=== PATIENT | male | born 1980 | race Asian ===

== ENCOUNTER 2024-09-17 15:24 | Inpatient (IN) | payer OTHER ==
[~2024-09-17] VITALS: Ht 177.8 cm; Wt 90.9 kg
[2024-09-17 17:59] LABS: BASOPHILS % (AUTO) 0.6 % (0.0-2.0); HEMATOCRIT 45.4 % (41-53); LYMPHOCYTES % (AUTO) 26.9 % (22.0-44.0); MEAN CORPUSCULAR HEMOGLOBIN 28.7 pg (26.0-34.0); MEAN CORPUSCULAR VOLUME 87 fL (80-100); MONOCYTES # (AUTO) 0.7 K/uL (0.1-1.0); MONOCYTES % (AUTO) 6.3 % (2.0-9.0); NEUTROPHILS # (AUTO) 7.3 K/uL (1.8-7.7); NEUTROPHILS % (AUTO) 65.2 % (40.0-70.0); PLATELET COUNT (AUTO) 346 K/uL (150-450); RED BLOOD CELL COUNT(AUTO) 5.22 MIL/uL (4.50-5.90); RED CELL DISTRIBUTION WIDTH 13.2 % (11.5-14.5); WHITE BLOOD COUNT (AUTO) 11.2 K/uL (4.5-11.0)
[2024-09-17] MEDS ORDERED: CHOL500043 PO (18:01)
[2024-09-17] MEDS ORDERED: OMEG-86 PO (18:01)
[2024-09-17 18:03] LABS: ANION GAP 10 mmol/L (8-16); CALCIUM, TOTAL 9.5 mg/dL (8.8-10.5); CARBON DIOXIDE 27 mmol/L (22-29); CHLORIDE 101 mmol/L (98-107); CREATININE 1.18 mg/dL (0.60-1.30); GLOMERULAR FILTR. RATE CALC > 60 mL/min (>60); GLUCOSE,RANDOM 95 mg/dL (70-110); LIPASE 24 U/L (16-77); POTASSIUM 4.2 mmol/L (3.5-5.1); SODIUM SERUM 138 mmol/L (136-145); UREA NITROGEN, BLOOD 24 mg/dL (7-18)
[2024-09-17 18:20] LABS: ALBUMIN 3.9 g/dL (3.4-5.0); BILIRUBIN,DIRECT 0.1 mg/dL (0.00-0.20); BILIRUBIN,TOTAL 0.5 mg/dL (0.1-1.0); TOTAL PROTEIN, SERUM 8.2 g/dL (6.4-8.2)
[2024-09-17 18:46] LABS: TROPONIN I-HIGH SENSITIVITY 4 ng/L (<76)
[2024-09-17 19:52] LABS: APPEARANCE,URINE TURBID (CLEAR); BILIRUBIN,URINE NEGATIVE (NEGATIVE); COLOR,URINE YELLOW (YELLOW); GLUCOSE, URINE (UA) NEGATIVE (NEGATIVE); LEUKOCYTE ESTERASE ,URINE NEGATIVE (NEGATIVE); NITRATE,URINE NEGATIVE (NEGATIVE); OCCULT BLOOD,URINE TRACE (NEGATIVE); PH,URINE 5.5 (5.0-8.0); PROTEIN,URINE 30-70 mg/dL (NEGATIVE); SPECIFIC GRAVITIY, URINE 1.036 (1.003-1.030); UROBILINOGEN,URINE <=1.0 mg/dL (<=1.0)
[2024-09-17 20:04] LABS: RBC,URINE 0-2 /HPF (0-2)
[2024-09-17 20:06] LABS: BACTERIA,URINE Moderate /HPF (None Seen); WBC,URINE 0-2 /HPF (0-5)
[2024-09-17] MEDS: KETOROLAC TROMETHAMINE 30 MG/ML VIAL IVP ONE (23:01)
[2024-09-17] MEDS: SODIUM CHLORIDE 0.9% 1,000 ML IV ONE (23:20)
[2024-09-17] MEDS ORDERED: MAGNESIUM HYDROXIDE SUSPENSION 30 ML UDCUP PO PRN (23:30)
[2024-09-17] MEDS ORDERED: ZOLPIDEM TARTRATE 5 MG TABLET PO PRN (23:30)
[2024-09-18] MEDS: ACETAMINOPHEN 325 MG TABLET PO PRN (01:34)
[2024-09-18 02:00] VITALS: BP 109/68; PULSE 65; RESP 18; TEMP 97.9; O2SAT 99
[2024-09-18 04:00] VITALS: BP 112/65; PULSE 71; RESP 18; TEMP 97.6; O2SAT 98
[2024-09-18] MEDS: MORPHINE SULFATE 2 MG/ML SYRINGE IVP PRN (04:46)
[2024-09-18 07:02] LABS: BASOPHILS % (AUTO) 0.4 % (0.0-2.0); EOSINOPHILS % (AUTO) 1.7 % (1.0-6.0); HEMATOCRIT 43.4 % (41-53); HEMOGLOBIN 14.5 g/dL (13.5-17.5); LYMPHOCYTES # (AUTO) 2.9 K/uL (1.0-4.8); LYMPHOCYTES % (AUTO) 31.2 % (22.0-44.0); MEAN CORPUSCULAR HGB CONC 33.3 G/dL (31.0-37.0); MEAN CORPUSCULAR VOLUME 87 fL (80-100); MONOCYTES # (AUTO) 0.8 K/uL (0.1-1.0); NEUTROPHILS # (AUTO) 5.3 K/uL (1.8-7.7); NEUTROPHILS % (AUTO) 57.7 % (40.0-70.0); PLATELET COUNT (AUTO) 289 K/uL (150-450); RED BLOOD CELL COUNT(AUTO) 4.99 MIL/uL (4.50-5.90); RED CELL DISTRIBUTION WIDTH 13.2 % (11.5-14.5); WHITE BLOOD COUNT (AUTO) 9.2 K/uL (4.5-11.0)
[2024-09-18 07:30] VITALS: BP 113/69; PULSE 60; RESP 18; TEMP 98.1; O2SAT 98
[2024-09-18] MEDS: FAMOTIDINE 20 MG TABLET PO SCH (08:05)
[2024-09-18] MEDS ORDERED: SODIUM CHLORIDE 0.9% 500 ML IV ONE (09:05)
[2024-09-18] MEDS: CefTRIAXone 1 GM/DEXTROSE 50 ML IV SCH (09:14)
[2024-09-18 19:53] VITALS: BP 115/70; PULSE 69; RESP 18; TEMP 97.6; O2SAT 96
[2024-09-19 04:58] VITALS: BP 122/74; PULSE 62; RESP 18; TEMP 98.1; O2SAT 98
[2024-09-19 08:01] VITALS: BP 119/73; PULSE 75; RESP 19; TEMP 98.5; O2SAT 97
[2024-09-19] MEDS ORDERED: MAGN-169 PO (10:13)
[2024-09-19] MEDS ORDERED: ACET-2247 PO (10:13)
[2024-09-19 11:14] VITALS: BP 116/77; PULSE 64; RESP 19; TEMP 98.3; O2SAT 99
[2024-09-19 16:46] VITALS: BP 137/93; PULSE 90; RESP 18; TEMP 98; O2SAT 98
== END 2024-09-19 20:02 | DRG 392 ==
LOC: EMS 15:24 → EDH 09-18 00:44 → 6S 09-18 01:33
PROVIDERS: ADMIT Internal Medicine; ATTEND Internal Medicine
DX: R10.84 Generalized abdominal pain (principal); D72.829 Elevated white blood cell count, unspecified; R82.71 Bacteriuria; Z90.5 Acquired absence of kidney
CPT/HCPCS: 71045; 74176; 80048; 80076; 81001; 83690; 84484; 85025; 87086; 99285; J0696; J1885; J2270; J7040; 36415-L1; 36415-TC